=== PATIENT | male | born 1945 | race Caucasian/White ===

== ENCOUNTER → 2017-08-01 | Outpatient (CLI) | payer OTHER ==
[~2017-08-01] MED LIST: FLEXERIL PO; IBUPROFEN 800800 M1 PO; PERCOCET 5-3251 EACH PO
== END ==
LOC: RAD 10:30
DX: M77.42 Metatarsalgia, left foot (principal)

== ENCOUNTER → 2018-10-29 | Outpatient (CLI) | payer OTHER | LOC: MRI 07:12 | DX: I67.82 Cerebral ischemia (principal); G31.9 Degenerative disease of nervous system, unspecified; I10 Essential (primary) hypertension; Z86.73 Personal history of transient ischemic attack (TIA), and cerebral infarction without residual deficits ==

== ENCOUNTER → 2019-12-18 | Outpatient (CLI) | payer OTHER | LOC: SJCVCIMAG 11-25 11:59 | DX: R94.31 Abnormal electrocardiogram [ECG] [EKG] (principal); I65.23 Occlusion and stenosis of bilateral carotid arteries; E78.5 Hyperlipidemia, unspecified; Z95.1 Presence of aortocoronary bypass graft; Z86.73 Personal history of transient ischemic attack (TIA), and cerebral infarction without residual deficits; Z87.891 Personal history of nicotine dependence ==

== ENCOUNTER → 2020-06-23 | Outpatient (CLI) | payer OTHER | LOC: SJCVC 10:08 | PROVIDERS: ATTEND Internal Medicine | DX: I44.0 Atrioventricular block, first degree (principal); R00.1 Bradycardia, unspecified; R94.31 Abnormal electrocardiogram [ECG] [EKG]; I25.810 Atherosclerosis of coronary artery bypass graft(s) without angina pectoris; I12.9 Hypertensive chronic kidney disease with stage 1 through stage 4 chronic kidney disease, or unspecified chronic kidney disease; N18.9 Chronic kidney disease, unspecified; E78.5 Hyperlipidemia, unspecified; I65.23 Occlusion and stenosis of bilateral carotid arteries; E78.00 Pure hypercholesterolemia, unspecified; Z86.73 Personal history of transient ischemic attack (TIA), and cerebral infarction without residual deficits; Z79.82 Long term (current) use of aspirin; Z79.899 Other long term (current) drug therapy; Z87.891 Personal history of nicotine dependence ==

== ENCOUNTER → 2020-12-23 | Outpatient (CLI) | payer OTHER | LOC: SJCVCIMAG 09:16 | PROVIDERS: ATTEND Internal Medicine | DX: I65.23 Occlusion and stenosis of bilateral carotid arteries (principal); R94.31 Abnormal electrocardiogram [ECG] [EKG]; I44.0 Atrioventricular block, first degree; R00.1 Bradycardia, unspecified; I25.10 Atherosclerotic heart disease of native coronary artery without angina pectoris; E78.5 Hyperlipidemia, unspecified; I12.9 Hypertensive chronic kidney disease with stage 1 through stage 4 chronic kidney disease, or unspecified chronic kidney disease; N18.9 Chronic kidney disease, unspecified; Z90.49 Acquired absence of other specified parts of digestive tract; Z98.61 Coronary angioplasty status; Z95.1 Presence of aortocoronary bypass graft; Z79.82 Long term (current) use of aspirin; Z79.899 Other long term (current) drug therapy; Z87.891 Personal history of nicotine dependence; Z86.73 Personal history of transient ischemic attack (TIA), and cerebral infarction without residual deficits ==

== ENCOUNTER → 2021-06-22 | Outpatient (CLI) | payer OTHER | LOC: SJCVC 10:23 | PROVIDERS: ATTEND Internal Medicine | DX: R94.31 Abnormal electrocardiogram [ECG] [EKG] (principal); I25.10 Atherosclerotic heart disease of native coronary artery without angina pectoris; E78.5 Hyperlipidemia, unspecified; I65.23 Occlusion and stenosis of bilateral carotid arteries; I12.9 Hypertensive chronic kidney disease with stage 1 through stage 4 chronic kidney disease, or unspecified chronic kidney disease; N18.9 Chronic kidney disease, unspecified; E78.00 Pure hypercholesterolemia, unspecified; Z98.61 Coronary angioplasty status; Z95.1 Presence of aortocoronary bypass graft; Z90.49 Acquired absence of other specified parts of digestive tract; Z79.82 Long term (current) use of aspirin; Z79.899 Other long term (current) drug therapy; Z86.73 Personal history of transient ischemic attack (TIA), and cerebral infarction without residual deficits; Z87.891 Personal history of nicotine dependence ==

== ENCOUNTER 2021-11-16 23:10 | Inpatient (IN) | payer OTHER ==
[~2021-11-16] VITALS: Ht 177.8 cm; Wt 79.4 kg
[2021-11-16 23:12] VITALS: BP 165/85
[2021-11-16 23:46] LABS: BASOPHILS 0.3 % (0.0-2.0); EOSINOPHILS 2.4 % (0.0-3.0); HEMATOCRIT 44.1 % (42.0-52.0); HEMOGLOBIN 14.9 gm/dL (14.0-18.0); LYMPHOCYTES 21.4 % (24.0-44.0); MCH 31.1 pg (26.0-34.0); MCHC 33.7 g/dL (28.0-37.0); MCV 92.2 fL (80.0-100.0); MONOCYTES 10.6 % (1.0-8.0); PLATELET COUNT 242 thou/uL (150-400); POLYS 65.3 % (36.0-66.0); RBC 4.79 mil/uL (4.50-6.00); WBC 7.6 thou/uL (4.0-11.0)
[2021-11-16 23:49] LABS: CALCIUM 8.9 mg/dL (8.5-10.1); CREATININE 1.3 mg/dL (0.7-1.3); POTASSIUM 4.1 mmol/L (3.5-5.1)
[2021-11-17] MEDS ORDERED: LIPITOR 40 MG T40 M1 PO (00:59)
[2021-11-17] MEDS ORDERED: NIFEDIPINE ER30 MG PO (01:00)
[2021-11-17] MEDS ORDERED: WELLBUTRIN XL300 MG PO (01:00)
[2021-11-17] MEDS ORDERED: ASA81BEC PO (01:00)
[2021-11-17] MEDS ORDERED: PROTONIX40 M4 PO (01:01)
[2021-11-17] MEDS ORDERED: LISINOPRIL10 MG PO (01:01)
[2021-11-17] MEDS ORDERED: TOPROL XL50 MG PO (01:01)
[2021-11-17 01:39] LABS: APTT 24.6 Seconds (24.5-32.8)
[2021-11-17 02:48] LABS: CHOLESTEROL 131 mg/dL (<200); HDL CHOLESTEROL 48 mg/dL (>40); LDL CHOLESTEROL 59 mg/dL (<100); TC:HDL 2.7 Ratio (Not establshd); TRIGLYCERIDE 121 mg/dL (<150); VLDL 24 mg/dL (<40)
[2021-11-17 02:57] LABS: SERUM ASSESSMENT Clear
--- NOTE | 2021-11-17 07:47 | EKG ---
[place] [address] [facility] [place] [address] ELECTROCARDIOGRAM REPORT Name: NORA BUITRAGO Room #: 170-12 ADM IN M.R.#: [id number] Admission: 11/17/21 Attend Phys: Radu Ibarra MD Discharge: Date of : 45 Report #: [id number] [facility] ED Test Date: 2021-11-16 Test Time: 23:12:54 Pat Name: NORA BUITRAGO Department: Room: 170 12 Gender: M Shift Lab Technician: JENNIE : 1945 Requested By: More Mendoza Order Number: [id number] MD: Grupo Khalil Measurements Intervals [place] Rate: 64 P: 53 WI: 208 QRS: 13 QRSD: 100 T: 153 QT: 430 QTc: 444 Interpretive Statements Sinus rhythm Repol abnrm suggests ischemia, diffuse leads Compared to ECG 09/14/1997 06:25:00 Early repolarization now present T-wave abnormality no longer present Possible ischemia still present Electronically Signed On 11-17-2021 7:47:18 ROLL GRINDER by Grupo Khalil [email or web address] <ELECTRONICALLY SIGNED> By: Grupo Khalil MD, [facility] 11/17/21 0747 2312 2312 Grupo Khalil MD, [facility] /EPI
--- NOTE | 2021-11-17 10:20 | CATHLAB ---
[facility] [place] [address] [place] [address] INVASIVE PROCEDURE REPORT Name: NORA BUITRAGO Room #: 160-1 ADM IN M.R.#: [id number] Admission: 11/17/21 Attend Phys: Christiano Fletcher MD Discharge: Date of : 45 Report #: [id number] THIS REPORT FOR: cc: Corey Epstein MD, Rene P. MD Lundgren, Craig H. MD [facility] ~ APPROVED REPORT Study performed: 11/17/2021 07:41:29 Patient Details Patient Status: ED Room #: The patient is a 76 year-old male Event Personnel Erik Jose Warehouse Coordinator, Ankur Velásquez RN RN, Anabel Anton RTR, MYLA Scrub, Nelly Eli RTR Scrub, Rahel Dang Monitor Procedures Performed Art Access - R femoral artery* Left Heart Cath w/or w/o Coronaries [id number] [facility] RULA Revasc Graft Single OM C9604 SVGREVSING 55969 Initial Mod Sed Same Phys/QHP Gr5y 648420 04117 Mod Sed Same Phys/QHP Ea 318087 Hemostasis w/ Mynx Indication Chest pain Procedure Narrative The patient was brought urgently to the Cardiac Catheterization Laboratory and was prepped and draped in a sterile manner. The Right Groin^ was infiltrated with 1% Lidocaine subcutaneous anesthesia. A PINNACLE 6FR Sheath #[id number] sheath was inserted into the RFA^. Coronary angiography was performed using coronary diagnostic catheters. The right coronary system was accessed and visualized with a JR4 catheter. The left coronary system was accessed and visualized with a JL4 catheter. The left ventricle was accessed and visualized with a ANGLE PIG catheter. Left ventriculogram was performed in 30 degree projection. The patient tolerated the procedure well and there were no complications associated with the procedure. There was no hematoma. This patient has 3 grafts: SVG-OM2, SVG-PDA, AND MJ. Intraoperative Conscious Sedation [address] [address] INVASIVE PROCEDURE REPORT Name: NORA BUITRAGO Room #: 160-1 ADM IN M.R.#: [id number] Admission: 11/17/21 Attend Phys: Christiano Fletcher MD Discharge: Date of : 45 Report #: [id number] Sedation start time: 0805 Case end Time: 09 Fentanyl 100 mcg Versed 1 mg Fluoro Time: 18.90 minutes Dose: DAP 30783.40 cGycm2 2890 mGy Contrast Type and Amount: Visipaque 320 ml Coronary Angiography The patient's coronary anatomy is right dominant. Diagnostic Cath Left Main 50% ostial left main stenosis LAD 85% ostial and proximal LAD stenosis Occlusion of the proximal LAD at the first septal perforating branch. Widely patent and angiographically normal MJ to the LAD. Distal anastomotic site was widely patent with excellent runoff into a large LAD that exhibited no significant disease Circumflex 90% proximal circumflex stenosis, small caliber vessel Diffusely diseased, high-grade and "thready" first and second proximal marginal branch stenoses before occlusion at the mid circumflex OM3 Saphenous vein graft from the aorta to the third marginal branch. Both proximal and distal anastomotic sites were widely patent. High-grade 99% proximal vein graft stenosis Mild OM 3 plaquing, graft dependent Right Coronary Occluded right coronary in its midportion Patent vein graft to the distal right coronary with 2 sequential 50% mid vein graft stenoses R PDA Posterior descending exhibited mild plaquing. Distal quarter of the posterior descending exhibited a high-grade 95% stenosis; small calibered at this site. Left Ventriculography The left ventricle is normal in size with normal contractility. The left ventricular ejection fraction is estimated to be 60-65%. Left ventricular wall motion abnormalities are not present. There is no mitral insufficiency. Hemodynamics The aortic pressure is 137/67 mmHg with a mean of 96 mmHg. The left ventricular pressure is 139/13 mmHg with a mean of mmHg. The left ventricular end diastolic pressure is 21 mmHg. [facility] [address] [place] [address] INVASIVE PROCEDURE REPORT Name: NORA BUITRAGO Room #: 160-1 ADM IN M.R.#: [id number] Admission: 11/17/21 Attend Phys: Christiano Fletcher MD Discharge: Date of : 45 Report #: [id number] PCI Technique Lesion Anticoagulation was achieved with Heparin, Integrilin. Patient was preloaded with Plavix. Percutaneous coronary intervention was performed on the SVG to third obtuse marginal branch segment. The lesion stenosis prior to intervention was 99% with LUISITO 2 flow. A LAUNCHER 6FR LCB #[id number] Guide Catheter was used to engage the ostium. A Luge Wire .014 x 182CM #[id number] Interventional Guidewire was used to cross the lesion. BALLOON DILATION A Balloon catheter Euphora RX 2.5 x 12 #[id number] was inserted and inflated up to 12.00atm for 27seconds. Additional Inflation: 14.00atm for 23seconds. STENT DEPLOYMENT A stent RESOLUTE CARLITOS RX 4.0 X 18 #[id number] was inserted and inflated up to 14.00atm for 33seconds. POST STENT DEPLOYMENT BALLOON DILATION A Balloon catheter Euphora NC RX 4.0 x 15 #[id number] was inserted and inflated up to 18.00atm for 38seconds. Additional Inflation: 16.00atm for 19seconds. Final angiography reveals 0 % stenosis with LUISITO 3 flow. Conclusion 1. Normal global and regional left ventricular systolic function. EF 65%. 2. Severe multivessel coronary disease. 3. Patent left internal mammary to the LAD. 4. Patent SVG to OM 3 with high-grade 99% proximal vein graft stenosis, treated with a 4.0 x 18 mm Resolute stent 5. Patent vein graft to the posterior descending with moderate mid vessel vein graft stenoses (40-50%) Recommendations Cardiac Rehabilitation Referral Aggressive Medical Therapy <ELECTRONICALLY SIGNED> By: Eirk Jose MD, [facility] 11/17/21 1019 1019 18 Erik Jose MD, FAC /INF
--- NOTE | 2021-11-17 14:20 | EKG ---
[place] [address] [facility] [place] [address] ELECTROCARDIOGRAM REPORT Name: NORA BUITRAGO Room #: 160-1 ADM IN M.R.#: [id number] Admission: 11/17/21 Attend Phys: Christiano Fletcher MD Discharge: Date of : 45 Report #: [id number] [facility] Test Date: 2021-11-17 Test Time: 09:55:32 Pat Name: NORA BUITRAGO Department: Room: 160 1 Gender: M Latrine Cleaner: BRE : 1945 Requested By: Erik Jose Order Number: [id number] MD: Grupo Khalil Measurements Intervals [place] Rate: 64 P: 45 ND: 217 QRS: -9 QRSD: 86 T: 156 QT: 436 QTc: 450 Interpretive Statements Sinus rhythm Borderline prolonged ND interval Nonspecific repol abnormality, diffuse leads Compared to ECG 11/16/2021 23:12:54 Possible ischemia no longer present Electronically Signed On 11-17-2021 14:20:42 ORACLE BPM CONSULTANT by Grupo Khalil [email or web address] <ELECTRONICALLY SIGNED> By: Grupo Khalil MD, [facility] 11/17/21 1420 0955 Grupo Khalil MD, FACC /EPI
[2021-11-17] MEDS ORDERED: CLOPIDOGREL75 MG PO (16:39)
[2021-11-17 17:08] VITALS: BP 147/78
[2021-11-17 19:04] VITALS: BP 149/86
[2021-11-17 23:55] VITALS: BP 144/86
[2021-11-18 01:06] LABS: GLYCOHEMOGLOBIN (HGB A1C) 5.6 % (4.8-5.6)
[2021-11-18 03:14] VITALS: BP 138/96
--- NOTE | 2021-11-18 03:42 | NUR ---
RECEIVED PATIENT AT 1900H.PATIEN TIS ALERT AND ORIENTED X4.ON ROOM AIR BREATHING SPONTANEOUSLY.WITH RIGHT GROIN COVERED WITH DRESSING C/D/I, NO HEMATOMA NOTED FROM THE SITE.MEDS GIVEN PER JAN.ALL NEEDS ATTENDED.TO CONTINOUSLY MONITOR.
[2021-11-18 05:32] LABS: HEMATOCRIT 41.5 % (42.0-52.0); HEMOGLOBIN 14.2 gm/dL (14.0-18.0); MCH 31.4 pg (26.0-34.0); MCHC 34.2 g/dL (28.0-37.0); MCV 91.9 fL (80.0-100.0); RBC 4.51 mil/uL (4.50-6.00); WBC 8.4 thou/uL (4.0-11.0)
[2021-11-18 05:46] LABS: ALBUMIN 3.3 g/dL (3.4-5.0); CALCIUM 8.7 mg/dL (8.5-10.1); CREATININE 1.1 mg/dL (0.7-1.3); POTASSIUM 4.1 mmol/L (3.5-5.1); TOTAL BILIRUBIN 0.9 mg/dL (0.2-1.0); TOTAL PROTEIN 6.8 g/dL (6.4-8.2)
[2021-11-18 07:20] VITALS: BP 127/76
[2021-11-18 12:16] VITALS: BP 132/75
[2021-11-18 14:57] VITALS: BP 129/84
--- NOTE | 2021-11-18 16:59 | NUR ---
ASSESSMENT CHARTED - MEDS PER LESLY MCCARTHY DIET AND FLUIDS. UP AD SHAKA IN ROOM - NO CO'S OF PAIN OR NAUSEA. GROIN SITE REMAINS C/D/I. SON AT THE BEDSIDE FOR MOST OF THE DAY. FINGERS ON RIGHT HAND LEFT OPEN TO THE AIR. PT HAD ACCIDENT WITH TABLE SAW AND CUT THESE FINGERS - APPEAR TO BE HEALING. PT ABLE TO MOVE AND HAS SENSATION IN THE FINGERS. NO CO'S AT THE PRESENT TIME.
[2021-11-18 19:20] VITALS: BP 139/74
[2021-11-19 03:44] VITALS: BP 128/80
--- NOTE | 2021-11-19 03:46 | NUR ---
RECEIEVED THE PATIENT AT 1900H.ON ROOM AIR BREATHING SPONTANEOULSY.RIGHT GROIN C/D/I.NOT IN PAIN OR DISTRESS.ALL NEEDS ATTENDED.TO CONTINOUSLY MONITOR.
[2021-11-19 07:00] VITALS: BP 122/98
--- NOTE | 2021-11-19 10:51 | 2DMMODE ---
[facility] [place] [address] 2 D/M-MODE ECHOCARDIOGRAM Name: NORA BUITRAGO Room #: 210-P ADM IN M.R.#: [id number] Admission: 11/17/21 Attend Phys: Christiano Fletcher MD Discharge: Date of : 45 Report #: [id number] THIS REPORT FOR: cc: Corey Epstein MD, Rene P. MD Lammoglia, Francisco J. MD ~ APPROVED REPORT Study performed: 11/18/2021 11:47:30 EXAM: Comprehensive 2D, Doppler, and color-flow Echocardiogram Patient Location: Bedside Room #: 210 Status: on-call BSA: 1.97 HR: 90 bpm BP: 129/76 mmHg Rhythm: Atrial Fibrillation Other Information Study Quality: Good Indications COPD Atrial Fibrillation Non STEMI CAD 2D Dimensions RVDd: 40.77 mm IVSd: 11.59 (7-11mm) LVOT Diam: 18.92 (18-24mm) LVDd: 50.00 mm PWd: 11.91 (7-11mm) Ascending Ao: 33.12 (22-36mm) LVDs: 35.87 (25-40mm) Left Atrium: 34.49 (27-40mm) Aortic Root: 34.46 mm IVC: 21.00 mm Volumes Left Atrial Volume (Systole) Single Plane 4CH: 45.17 mL Single Plane 2CH: 35.53 mL LA ESV Index: 24.00 mL/m2 Aortic Valve AoV Peak Gareth.: 1.03 m/s [facility] [address] [place] [address] 2 D/M-MODE ECHOCARDIOGRAM Name: NORA BUITRAGO Room #: 210-P ADM IN M.R.#: [id number] Admission: 11/17/21 Attend Phys: Christiano Fletcher MD Discharge: Date of : 45 Report #: [id number] AO Peak Gr.: 4.27 mmHg LVOT Max P.04 mmHg LVOT Max V: 0.87 m/s DARRIAN Vmax: 2.37 cm2 Pulmonary Valve PV Peak Gareth.: 0.88 m/s PV Peak Gr.: 3.10 mmHg Tricuspid Valve TR Peak Gareth.: 2.60 m/s TR Peak Gr.: 27.19 mmHg PA Pressure: 37.00 mmHg Left Ventricle The left ventricle is normal size. There is normal LV segmental wall motion. There is normal left ventricular wall thickness. The left ventricular systolic function is normal. The left ventricular ejection fraction is within the normal range. LVEF is >55%. This study is not technically sufficient to allow evaluation of the LV diastolic function due to atrial fibrillation. Right Ventricle The right ventricle is normal size. The right ventricular systolic function is normal. Atria The left atrium size is normal. The right atrium size is normal. Aortic Valve The aortic valve is normal in structure. Aortic valve is calcified. No aortic regurgitation is present. There is no aortic valvular stenosis. Mitral Valve The mitral valve is normal in structure. Mild mitral regurgitation. No evidence of mitral valve stenosis. Tricuspid Valve The tricuspid valve is normal in structure. There is trace tricuspid regurgitation. Estimated PAP 37 mmHg. There is mild pulmonary hypertension. Pulmonic Valve The pulmonary valve is normal in structure. There is no pulmonic valvular regurgitation. [facility] [address] [place] [address] 2 D/M-MODE ECHOCARDIOGRAM Name: NORA BUITRAGO Room #: 210- ADM IN M.R.#: [id number] Admission: 11/17/21 Attend Phys: Christiano Fletcher MD Discharge: Date of : 45 Report #: [id number] Great Vessels The aortic root is normal in size. IVC is dilated and collapses >50% with inspiration. Pericardium There is no pericardial effusion. <Conclusion> The left ventricle is normal size. LVEF is >55%. The left atrium size is normal. The aortic valve is normal in structure. Aortic valve is calcified. The mitral valve is normal in structure. Mild mitral regurgitation. The tricuspid valve is normal in structure. There is trace tricuspid regurgitation. Estimated PAP 37 mmHg. There is mild pulmonary hypertension. The pulmonary valve is normal in structure. The aortic root is normal in size. There is no pericardial effusion. <ELECTRONICALLY SIGNED> By: Carlitos Crump MD 11/19/21 1051 50 50 Carlitos Crump MD /INF
[2021-11-19 12:00] VITALS: BP 136/71
[2021-11-19 15:00] VITALS: BP 135/70
--- NOTE | 2021-11-19 18:23 | NUR ---
ASSESSMENT CHARTED - MEDS PER LESLY MCCARTHY DIET AND FLUIDS. NO CO'S OF PAIN OR NAUSEA. GROIN SITE REMAINS STABLE, STARTED ON AXIBAN THIS SHIFT PRDERED. UP IN ROOM DESIRED - SON INTO SEE PATIENT TODAY. NO CO'S AT THE PRESENT TIME.
[2021-11-19 20:08] VITALS: BP 128/86
[2021-11-20 04:15] VITALS: BP 133/79
--- NOTE | 2021-11-20 07:37 | EKG ---
[place] [address] [facility] [address] ELECTROCARDIOGRAM REPORT Name: NORA BUITRAGO Room #: 210-P ADM IN M.R.#: [id number] Admission: 11/17/21 Attend Phys: Christiano Fletcher MD Discharge: Date of : 45 Report #: [id number] [facility] Test Date: 2021-11-18 Test Time: 07:53:26 Pat Name: NORA BUITRAGO Department: Room: 210 P Gender: M Suspender Maker: JJ : 1945 Requested By: Erik Jose Order Number: [id number] MD: Grupo Khalil Measurements Intervals [place] Rate: 101 P: [place]: QRS: -7 QRSD: 86 T: 225 QT: 380 QTc: 493 Interpretive Statements Atrial fibrillation Inferoposterior infarct, recent Abnrm T, consider ischemia, anterolateral lds Compared to ECG 11/17/2021 09:55:32 Myocardial infarct finding now present Possible ischemia now present Sinus rhythm no longer present Early repolarization no longer present Electronically Signed On 11-20-2021 7:37:12 DOOR CUTTER by Grupo Khalil [email or web address] <ELECTRONICALLY SIGNED> By: Grupo Khalil MD, FAC 11/20/21 0737 0753 0753 Grupo Khalil MD, [facility] /EPI
[2021-11-20 08:00] VITALS: BP 136/83
[2021-11-20] MEDS ORDERED: ELIQUIS5 MG PO (08:45)
[2021-11-20 10:37] VITALS: BP 132/82
[2021-11-20 12:57] VITALS: BP 132/82
--- NOTE | 2021-11-20 14:15 | NUR ---
PATIENT ADMITTED FOR NSTEMI. CHART REVIEWED AND DISCUSSED WITH CARE STAFF. CM MET WITH PT THIS DAY. CM ROLE INTRODUDED. PATIENT REPORTS HE LIVES AT HOME WITH HIS . HE IS INDEPENDENT WITH ADLS AND MOBILITY. HE STILL WORKS FT. HE REPORTS HIS PCP IS DR. ZAMORA, CARDIOLOIST. HE REPORTS HIS PRIMARY CONTACT IS HIS SON LEXA AND ALSO HIS DAUGHTER ROCIO. HER # IS [phone]. PT REPORTS NO CONCERNS WITH DC HOME. HE REPORTS HE HAS HIS FOLDER FOR CARDIAC REHAB PROVIDED TO HIM THIS STAY AND WILL F/U. NO FURTHER CM NEEDED AT THIS TIME.
[2021-11-20 15:09] VITALS: BP 132/82
--- NOTE | 2021-11-20 15:20 | NUR ---
DC INSTRUCTIONS REVIEWED WITH PT AND FAMILY MEMBER. QUESTIONS ENCOURAGED AND ADDRESSED. PT WAS SENT HOME WITH CARE INSTRUCTIONS. IV AND TELE MONITORING WERE DISCONTINUED. PT PACKED THEIR BELONGINGS AND WENT HOME WITH THE ASSISTANCE OF FAMILY.
== END 2021-11-20 16:16 | disposition home or self-care (01) | DRG 247 ==
LOC: ER 23:10 → TBACV 11-17 01:21 → 2N 11-17 01:21 → EROBS 11-17 01:21 → TBACV 11-17 07:51 → 2N 11-17 15:39
PROVIDERS: Emergency Medicine; Internal Medicine; Nurse Practitioner Family; ADMIT Internal Medicine; ATTEND Internal Medicine
DX: I21.4 Non-ST elevation (NSTEMI) myocardial infarction (principal); I48.0 Paroxysmal atrial fibrillation; E78.5 Hyperlipidemia, unspecified; F32.9 Major depressive disorder, single episode, unspecified; J43.9 Emphysema, unspecified; F41.9 Anxiety disorder, unspecified; I25.10 Atherosclerotic heart disease of native coronary artery without angina pectoris; K21.9 Gastro-esophageal reflux disease without esophagitis; I12.9 Hypertensive chronic kidney disease with stage 1 through stage 4 chronic kidney disease, or unspecified chronic kidney disease; N18.9 Chronic kidney disease, unspecified; Z79.82 Long term (current) use of aspirin; Z95.1 Presence of aortocoronary bypass graft; Z95.5 Presence of coronary angioplasty implant and graft; Z86.73 Personal history of transient ischemic attack (TIA), and cerebral infarction without residual deficits; Z87.442 Personal history of urinary calculi; Z90.49 Acquired absence of other specified parts of digestive tract; Z82.49 Family history of ischemic heart disease and other diseases of the circulatory system; Z79.899 Other long term (current) drug therapy; Z23 Encounter for immunization
CPT/HCPCS: 10081

== ENCOUNTER → 2021-12-28 | Outpatient (CLI) | payer OTHER ==
[~2021-12-28] MED LIST changes: +ASA81BEC PO; +CLOPIDOGREL75 MG PO; +ELIQUIS5 MG PO; +LIPITOR 40 MG T40 M1 PO; +LISINOPRIL10 MG PO; +NIFEDIPINE ER30 MG PO; +PROTONIX40 M4 PO; +TOPROL XL50 MG PO; +WELLBUTRIN XL300 MG PO
== END ==
LOC: SJCVCIMAG 08:29
PROVIDERS: ATTEND Internal Medicine
DX: I65.23 Occlusion and stenosis of bilateral carotid arteries (principal); R94.31 Abnormal electrocardiogram [ECG] [EKG]; R00.1 Bradycardia, unspecified; I44.0 Atrioventricular block, first degree; I25.10 Atherosclerotic heart disease of native coronary artery without angina pectoris; I48.0 Paroxysmal atrial fibrillation; E78.5 Hyperlipidemia, unspecified; Z95.1 Presence of aortocoronary bypass graft; Z86.73 Personal history of transient ischemic attack (TIA), and cerebral infarction without residual deficits; N18.9 Chronic kidney disease, unspecified; I12.9 Hypertensive chronic kidney disease with stage 1 through stage 4 chronic kidney disease, or unspecified chronic kidney disease; Z79.82 Long term (current) use of aspirin; Z79.899 Other long term (current) drug therapy; F17.210 Nicotine dependence, cigarettes, uncomplicated; Z72.89 Other problems related to lifestyle